=== PATIENT | male | born 1990 | race Caucasian/White ===

== ENCOUNTER 2016-12-18 18:42 | Emergency (ER) | payer MEDICAID ==
[~2016-12-18] VITALS: Ht 180.3 cm; Wt 61.2 kg
[2016-12-18 19:01] VITALS: BP 120/67
[2016-12-18] MEDS ORDERED: IBUPROFEN 600 MG TAB PO ONE (21:15)
== END 2016-12-18 21:40 | disposition home or self-care (01) ==
LOC: ER 18:46
DX: S86.911A Strain of unspecified muscle(s) and tendon(s) at lower leg level, right leg, initial encounter (principal); M25.461 Effusion, right knee; X50.9XXA Other and unspecified overexertion or strenuous movements or postures, initial encounter; Y93.89 Activity, other specified; Y99.8 Other external cause status; Y92.89 Other specified places as the place of occurrence of the external cause
CPT/HCPCS: 29505; 73562

== ENCOUNTER 2022-03-27 00:52 | Emergency (ER) | payer MEDICAID ==
[~2022-03-27] VITALS: Ht 182.9 cm; Wt 70.3 kg
[2022-03-27 00:53] VITALS: BP 136/83
[2022-03-27] MEDS ORDERED: CEPH-509 PO (01:33)
== END 2022-03-27 01:46 | disposition home or self-care (01) ==
LOC: ER 00:52
DX: S90.561A Insect bite (nonvenomous), right ankle, initial encounter (principal); L03.115 Cellulitis of right lower limb; F11.10 Opioid abuse, uncomplicated; F15.10 Other stimulant abuse, uncomplicated; F12.10 Cannabis abuse, uncomplicated; F17.210 Nicotine dependence, cigarettes, uncomplicated; W57.XXXA Bitten or stung by nonvenomous insect and other nonvenomous arthropods, initial encounter; Y93.89 Activity, other specified; Y92.89 Other specified places as the place of occurrence of the external cause; Y99.8 Other external cause status